=== PATIENT | female | born 1940 | race Asian ===

== ENCOUNTER 2018-01-20 21:34 | Inpatient (IN) | payer MEDICARE, MEDICAID ==
[~2018-01-20] VITALS: Ht 152.4 cm; Wt 64.0 kg
[~2018-01-20 21:34] MED LIST: ASPI81TA31 PO; CALC0.5C11 PO; CLAR500T3 PO; ESOM40CA PO; MAGN250T10 PO; METO-357 PO; TRAM50TA PO
--- NOTE | 2018-01-20 21:54 | NUR ---
PT A/OX4, RESPONSIVE TO VERBAL AND TACTILE STIMULIL. PT C/O SI. PT VERBALIZES PLAN TO HARM SELF USING "SLEEPING PILLS" AND ADMITS TO HAVING ACCESS TO SLEEPING PILLS. PT IS CALM, COOPERATIVE, BUT VERBALIZES EXTREME SADNESS. PT DENIES PAIN, C/P, SOB, N/V/D, DIZZINESS, HEADADCHE. PT SELF-AMBULATED TO BED WITHOUT DIFFICULTY. PT IN BED, BED IN LOW AND LOCKED POSITION WITH BILATERAL SIDERAILS UP.
[2018-01-20] MEDS ORDERED: RISP0.5T20 PO (22:15)
[2018-01-20] MEDS ORDERED: FAMO20TA8 PO (22:15)
[2018-01-20] MEDS ORDERED: ONDANSETRON ODT 4 MG TAB.RAPDIS SL ONE (22:30)
[2018-01-20] MEDS ORDERED: HYDROCODONE/APAP 5-325MG TABLET PO ONE (22:30)
[2018-01-20] MEDS ORDERED: ONDANSETRON ODT 4 MG TAB.RAPDIS ONE (22:35)
[2018-01-20] MEDS ORDERED: HYDROCODONE/APAP 5-325MG TABLET ONE (22:35)
--- NOTE | 2018-01-20 22:43 | NUR ---
XRAY AT BEDSIDE.
--- NOTE | 2018-01-20 22:55 | NUR ---
CALLED MARISA, CRISIS INSURANCE CLERK, FOR PSYCH EVAL. LEFT MESSAGE. ATTEMPT 1.
[2018-01-20 23:09] LABS: BASOPHILS % (AUTO) 0.5 % (0.0-2.0); EOSINOPHILS # (AUTO) 0.1 K/uL (0.0-0.7); EOSINOPHILS % (AUTO) 1.6 % (0.0-7.0); HEMATOCRIT 38.8 % (31.2-41.9); HEMOGLOBIN 13.5 g/dL (10.9-14.3); LYMPHOCYTES # (AUTO) 1.9 K/uL (20.0-40.0); LYMPHOCYTES % (AUTO) 31.2 % (20.5-51.5); MEAN CORPUSCULAR HEMOGLOBIN 33.2 uug (24.7-32.8); MEAN CORPUSCULAR HGB CONC 35 g/dL (32.3-35.6); MEAN CORPUSCULAR VOLUME 95.6 fL (75.5-95.3); MONOCYTES # (AUTO) 0.6 K/uL (2.0-10.0); MONOCYTES % (AUTO) 9.3 % (0.0-11.0); NEUTROPHILS # (AUTO) 3.6 K/uL (1.8-8.9); NEUTROPHILS % (AUTO) 57.4 % (38.5-71.5); PLATELET COUNT (AUTO) 292 K/uL (179-408); RED BLOOD CELL COUNT(AUTO) 4.06 MIL/uL (3.63-4.92); WHITE BLOOD COUNT (AUTO) 6.2 K/uL (3.8-11.8)
[2018-01-20 23:23] LABS: *BILIRUBIN,URIN NEGATIVE (NEGATIVE); *BLOOD, URINE 1+ (NEGATIVE); *CLARITY,URINE CLEAR (CLEAR); *KETONES,URINE NEGATIVE (NEGATIVE); *PROTEIN,URINE NEGATIVE (NEGATIVE); *UROBILINOGEN,URINE 0.2 E.U./dl (NORMAL); LEUKOCYTE ESTERASE ,URINE TRACE (NEGATIVE); NITRITE, URINE NEGATIVE (NEGATIVE); UGLUCOSE NEGATIVE (NEGATIVE)
[2018-01-20 23:27] LABS: ALANINE AMINOTRANSFERASE 23 U/L (14-59); ALKALINE PHOSPHATASE 39 U/L (50-136); ASPARTATE AMINOTRANSFERASE 19 U/L (15-37); BILIRUBIN,DIRECT 0.2 mg/dL (0.0-0.2); BILIRUBIN,TOTAL 0.7 mg/dL (0.2-1.0); CARBON DIOXIDE 28 mmol/L (21-32); CHLORIDE 103 mmol/L (98-107); CREATININE 0.7 mg/dL (0.6-1.3); GLUCOSE 105 mg/dL (74-106); POTASSIUM 3.9 mmol/L (3.5-5.1); TOTAL PROTEIN, SERUM 7.5 g/dL (6.4-8.2); UREA NITROGEN, BLOOD 12 mg/dL (7-18)
--- NOTE | 2018-01-20 23:27 | NUR ---
SPOKE W/ MARISA, CRISIS AIRCRAFT MOTOR MECHANIC. ETA 1 HOUR.
[2018-01-20 23:30] LABS: ACETAMINOPHEN < 2.0 ug/mL (10-30)
[2018-01-20 23:33] LABS: THYROID STIMULATING HORMONE 1.818 mIU/mL (0.358-3.740)
[2018-01-20 23:39] LABS: ETHANOL < 3 MG/DL (0-0)
[2018-01-20 23:40] LABS: *COLOR,URINE STRAW (YELLOW)
[2018-01-20 23:41] LABS: BACTERIA,URINE NONE SEEN /HPF (NONE SEEN); RBC,URINE 0-3 /HPF (0-3); SQUAMOUS EPITHELIAL CELL,UR FEW /HPF (NONE SEEN); WBC,URINE 0-3 /HPF (0-3)
[2018-01-20 23:45] LABS: *AMPHETAMINE, URINE NEGATIVE (NEGATIVE); *BARBITURATE, URINE NEGATIVE (NEGATIVE); *CANNABINOID, URINE NEGATIVE (NEGATIVE); *COCCAINE, URINE NEGATIVE (NEGATIVE); *OPIATE, URINE NEGATIVE (NEGATIVE); *PHENCYCLIDINE SCREEN,URINE NEGATIVE (NEGATIVE)
--- NOTE | 2018-01-21 00:17 | NUR ---
MARISA, CRISIS STEM SHAPER, IN DEPARTMENT.
--- NOTE | 2018-01-21 01:10 | NUR ---
PT PLACED ON 5150 HOLD FOR DTS. PT WILL BE ADMITTED TO [facility].
--- NOTE | 2018-01-21 02:52 | NUR ---
Pt. admitted to [facility], under care of Dr. REIS/PETE. Belongs List completed
[2018-01-21 03:00] VITALS: BP 136/62
[2018-01-21] MEDS ORDERED: LORAZEPAM 1 MG TABLET PO PRN (03:00)
[2018-01-21] MEDS ORDERED: MAG HYDROX/AL HYDROX/SIMETH 30 ML LIQUID UDC PO PRN (03:00)
[2018-01-21] MEDS ORDERED: MAGNESIUM HYDROXIDE 30 ML LIQUID UDC PO PRN (03:00)
[2018-01-21] MEDS ORDERED: ACETAMINOPHEN 325 MG TABLET PO PRN (03:00)
[2018-01-21] MEDS ORDERED: TEMAZEPAM 7.5 MG CAPSULE PO PRN (03:00)
--- NOTE | 2018-01-21 03:20 | NUR ---
77 YEAR OLD FEMALE BROUGHT TO MED SURG FLOOR VIA GURNEY. ACCOMPANIED BY ER STAFF, PT ON 5150 HOLD FOR DTS,ACCORDING TO THE HOLD. PT STATED THAT SHE IS DEPRESSED, SUICIDAL,CRYING A LOT, HAVE THOUGHTS TO OVERDOSE ON MEDICATIONS, SHE HAS NO ENERGY AND APPETITE. SHE STATED WHEN INTERVIEWED FACE TO FACE THAT " SHE WANT TO AND DON'T WANT TO LIVE." RN CONCURS WITH THE HOLD. ADVISEMENT AND PATIENT RIGHTS HANDBOOK GIVEN. UPON FACE TO FACE ASSESSMENT, PT APPEARS TO REFLECT WHAT IS ON HOLD. PT IS ALERTAND ORIENTEDX3 AND COOPERATIVE WITH ASSESSMENT. PT REPORTS 9/10DEPRESSION, NO SI AT THIS TIME. PT AGREED TO CONTRACT FOR SAFETY INSIDE HOSPITAL. PT SKIN INTACT. PT CONTRABAND ITEMS IS ON CONTRABAND LOCKER. DOCTOR HARDY AND DR GERALDO WEST NOTIFIED OF ADMISSION, ORDERS RECEIVED. PT ORIENTED TO UNIT AND EDUCATED ON UNIT RULES.PT VITAL SIGNS WITHIN NORMAL LIMIT. SITTER AT BEDSIDE FOR SAFETY. WILL CONTINUE TO MONITOR.
--- NOTE | 2018-01-21 07:46 | NUR ---
RECEIVED PATIENT AWAKE ALERT/ORIENTED BUT SOMEWHAT FORGETFUL ABLE TO MAKE SIMPLE NEEDS KNOWN ASSISTED AMBULATED TO THE BATHROOM TO VOID DENIES SI AT THIS TIME MADE COMFORTABLE.
[2018-01-21 08:15] VITALS: BP 139/71
--- NOTE | 2018-01-21 12:21 | NUR ---
Firearms Report: Buzzsaw Operator Helper completed and submitted [employer] Firearms Report for DTS certification.
--- NOTE | 2018-01-21 14:54 | NUR ---
PATIENT TRANSFERED TO MENTAL HEALTH FIRST FLOOR BY W/CHAIR REPORT GIVEN TO LENIN IN CHARGE WITH ALL HER PERSONAL BELONGINGS INCLUDING TWO BAGS FROM THE CONTRA BAND LOCKER TRANSFERED IN SATISFACTORY CONDITION.
[2018-01-21 18:02] VITALS: BP 118/66
[2018-01-21 20:00] VITALS: BP 129/66
[2018-01-21] MEDS: MIRTAZAPINE 15 MG TABLET PO SCH (20:30)
[2018-01-21] MEDS: risperiDONE 0.25 MG TABLET PO SCH (20:30)
[2018-01-22 07:30] VITALS: BP 110/60
[2018-01-22] MEDS: METOPROLOL SUCCINATE XL 50 MG TAB.SR.24H PO SCH ×2 (08:40→17:33)
[2018-01-22] MEDS: FAMOTIDINE 20 MG TABLET PO SCH ×2 (08:40→17:33)
[2018-01-22] MEDS: ASPIRIN 81 MG TAB.CHEW PO SCH (08:40)
[2018-01-22 15:34] VITALS: BP 107/61
[2018-01-22 19:30] VITALS: BP 115/75
[2018-01-22] MEDS: MIRTAZAPINE 15 MG TABLET PO SCH (20:32)
[2018-01-22] MEDS: risperiDONE 0.25 MG TABLET PO SCH (20:32)
--- NOTE | 2018-01-23 05:36 | NUR ---
Received pt to care, pt standing in the doorway of her room. Pt pleasant, A&O x 2-3, pt states that she wants to go home. Pt concerned about her roommate behavior, states that she talks to much and she does not want other pt in her room. Pt req "sleeping pill" but was informed she is not receiving a sleeping pill but meds for depression and mood. I figured this out due to pt description of the med, pt states "one is cut in half" Pt receiving risperdal and remeron 7.5 instead of 15mg. Pt complied with taking her scheduled meds. Pt complained to television script writer that since she has been on this unit she has been constipated and has upset stomach. Data Entry Supervisor noticed that PRN were never given. Inquired with pt and she states that she never told anyone. Pt informed that meds can cause constipation and that she needs to notify staff about what is happening with her at all times so we can treat and help her. Dr. Villagomez was on the unit, he is considering discharging pt but let her know that he wants her to have a bowel movement first. Pt agreed to take milk of magnesia. About 1 hour later pt showed television script writer a small, formed, skinny, dark green, med soft piece of BM that was wrapped in a napkin. Pt states that she has flushed the rest. Pt wants doctor to know about BM so that she can go home. Pt later req a sleeping pill because her roommate is bothering her with talking to herself and she cannot get to sleep. Pt given restoril. Pt went to sleep. Woke up 3 hours later complaining of roommate again, pt counseled and was walked back to her room. Pt was noted in the bed resting continuously the rest of the night. Pt is still asleep at 5:45am. Pt seems stable to television script writer.
[2018-01-23 07:30] VITALS: BP 102/66
[2018-01-23 07:33] LABS: BASOPHILS % (AUTO) 0.4 % (0.0-2.0); EOSINOPHILS # (AUTO) 0.1 K/uL (0.0-0.7); EOSINOPHILS % (AUTO) 1.5 % (0.0-7.0); HEMATOCRIT 41.6 % (31.2-41.9); HEMOGLOBIN 14.1 g/dL (10.9-14.3); LYMPHOCYTES # (AUTO) 2.5 K/uL (20.0-40.0); LYMPHOCYTES % (AUTO) 34.1 % (20.5-51.5); MEAN CORPUSCULAR HEMOGLOBIN 33.1 uug (24.7-32.8); MEAN CORPUSCULAR HGB CONC 34 g/dL (32.3-35.6); MEAN CORPUSCULAR VOLUME 97.9 fL (75.5-95.3); MONOCYTES # (AUTO) 0.7 K/uL (2.0-10.0); MONOCYTES % (AUTO) 9.9 % (0.0-11.0); NEUTROPHILS # (AUTO) 3.9 K/uL (1.8-8.9); NEUTROPHILS % (AUTO) 54.1 % (38.5-71.5); PLATELET COUNT (AUTO) 288 K/uL (179-408); RED BLOOD CELL COUNT(AUTO) 4.25 MIL/uL (3.63-4.92); WHITE BLOOD COUNT (AUTO) 7.2 K/uL (3.8-11.8)
[2018-01-23 07:49] LABS: CARBON DIOXIDE 29 mmol/L (21-32); CHLORIDE 107 mmol/L (98-107); CREATININE 0.6 mg/dL (0.6-1.3); GLUCOSE 98 mg/dL (74-106); MAGNESIUM 2.2 mg/dL (1.8-2.4); PHOSPHOROUS 4.1 mg/dL (2.5-4.9); POTASSIUM 3.8 mmol/L (3.5-5.1); UREA NITROGEN, BLOOD 18 mg/dL (7-18)
[2018-01-23] MEDS: ASPIRIN 81 MG TAB.CHEW PO SCH ×2 (08:57→09:00)
[2018-01-23] MEDS: METOPROLOL SUCCINATE XL 50 MG TAB.SR.24H PO SCH ×2 (08:58→17:10)
[2018-01-23] MEDS: FAMOTIDINE 20 MG TABLET PO SCH ×2 (08:59→17:07)
--- NOTE | 2018-01-23 11:48 | NUR ---
Initial Discharge Instructions: Patient currently lives at home with her [[address] [address]; [phone]]. Spoke with patient's daughter, Lucila Ortiz ([phone]) who reports she would like the patient to return home when ready for discharge and will provide the transportation. Daughter also reported that the patient will need Home Health for medication management and drug abuse social worker when discharged. Dtr also requested referrals to a Mandarin-speaking psychiatrist if possible. SW will continue to collaborate with pt, family, and MD regarding most appropriate discharge plans. SW will form a safe and proper discharge.
[2018-01-23 16:09] VITALS: BP 105/50
--- NOTE | 2018-01-23 18:51 | NUR ---
patient visible on unit c/o roommate and requested a room change and it was changed to 145 c , no behavior problems frequent redirection.continue to provide a safe enviornment
[2018-01-23] MEDS: risperiDONE 0.25 MG TABLET PO SCH (20:42)
[2018-01-23] MEDS: MIRTAZAPINE 15 MG TABLET PO SCH (20:43)
[2018-01-23 21:48] VITALS: BP 107/60
[2018-01-23] MEDS ORDERED: MONTELUKAST SODIUM 10 MG TABLET ONE (22:35)
[2018-01-23] MEDS ORDERED: GABAPENTIN 400 MG CAPSULE ONE (22:36)
[2018-01-23] MEDS ORDERED: DIAZEPAM 5 MG TABLET ONE (22:36)
[2018-01-23] MEDS ORDERED: ATORVASTATIN 20 MG TABLET ONE (22:40)
[2018-01-24 07:30] VITALS: BP 111/50
[2018-01-24 09:00] VITALS: BP 108/51
[2018-01-24] MEDS: METOPROLOL SUCCINATE XL 50 MG TAB.SR.24H PO SCH (09:00)
[2018-01-24] MEDS: ASPIRIN 81 MG TAB.CHEW PO SCH (09:18)
[2018-01-24] MEDS: FAMOTIDINE 20 MG TABLET PO SCH (09:18)
--- NOTE | 2018-01-24 09:55 | NUR ---
Discharge Note: Patient will be discharging back to home [[email or web address] [address]; ] and transportation will be provided by daughter, Lucila [[phone]] at 11:30. boning room worker has spoken with patient daughter who is aware and agreeable with discharge plan. boning room worker has informed patient of discharge who is also aware and agreeable with plan. Patient is AxOx3 and denies any SI/HI and is able to provide self-care. Patient will need home health for medication management and social work support. Home health is in the process of being arranged and aids social worker will follow-up. Patient also is being provided with a list of Mandarin speaking psychiatrists. Patient was provided with mental health resources including [facility] Crisis Line [ ], Ciarra Bello [ ], and National Suicide Prevention Lifeline [ ]. Addendum: 01/25/18 at 1522 by LEEANNA SHAH Additional Information: Patient was accepted by [facility] [[phone]] agency and acceptance was confirmed by Josie. Per Josie, they will contact patient and set up time for visit.
--- NOTE | 2018-01-24 12:32 | NUR ---
Gps/Director Of Recruiting Daughter in to knot picker cloth patient, reviewed prescriptions, medications ,diet, safety emphasized , discharged instructions reviewed, both verbalized understanding .Discharged in good spirit, no complaints noted.Discharged via private car, all belongings returned back to patient.
== END 2018-01-24 12:30 | disposition home health service (06) | DRG 885 ==
LOC: ER 21:37 → GPSOV 01-21 01:50 → GPS 01-21 14:52
PROVIDERS: ADMIT Psychiatry & Neurology Psychiatry; ATTEND Nurse Practitioner Acute Care
DX: F33.3 Major depressive disorder, recurrent, severe with psychotic symptoms (principal); M48.56XA Collapsed vertebra, not elsewhere classified, lumbar region, initial encounter for fracture; Z91.5 Personal history of self-harm; K21.9 Gastro-esophageal reflux disease without esophagitis; M81.0 Age-related osteoporosis without current pathological fracture; I10 Essential (primary) hypertension; M19.90 Unspecified osteoarthritis, unspecified site; E78.5 Hyperlipidemia, unspecified; F41.9 Anxiety disorder, unspecified; R00.2 Palpitations
CPT/HCPCS: 36415; 72100; 80307; 83735; 84100; 84443; 85025; 93005; A4663; G0480; G0480-TC; Q0162

== ENCOUNTER 2022-12-21 13:00 | Inpatient (IN) | payer MEDICARE, OTHER ==
[~2022-12-21] VITALS: Ht 152.4 cm; Wt 54.4 kg
[~2022-12-21 13:00] MED LIST changes: -CALC0.5C11 PO; -CLAR500T3 PO; -ESOM40CA PO; +FAMO20TA8 PO; -MAGN250T10 PO; -TRAM50TA PO
[2022-12-21 14:05] LABS: *BILIRUBIN,URIN NEGATIVE (NEGATIVE); *BLOOD, URINE 2+ (NEGATIVE); *CLARITY,URINE CLEAR (CLEAR); *COLOR,URINE YELLOW (YELLOW); *KETONES,URINE NEGATIVE (NEGATIVE); *PROTEIN,URINE NEGATIVE (NEGATIVE); LEUKOCYTE ESTERASE ,URINE NEGATIVE (NEGATIVE); NITRITE, URINE NEGATIVE (NEGATIVE); PH,URINE 6.5 (5.0-8.0); UGLUCOSE NEGATIVE (NEGATIVE)
[2022-12-21 14:18] LABS: BASOPHILS % (AUTO) 0.8 % (0.0-2.0); EOSINOPHILS % (AUTO) 1.1 % (0.0-7.0); HEMATOCRIT 37.8 % (31.2-41.9); HEMOGLOBIN 12.9 g/dL (10.9-14.3); LYMPHOCYTES # (AUTO) 1.3 K/uL (0.8-4.8); LYMPHOCYTES % (AUTO) 29.2 % (20.5-51.5); MEAN CORPUSCULAR HEMOGLOBIN 33.1 uug (24.7-32.8); MEAN CORPUSCULAR HGB CONC 34 g/dL (32.3-35.6); MEAN CORPUSCULAR VOLUME 96.8 fL (75.5-95.3); MONOCYTES # (AUTO) 0.5 K/uL (0.1-1.30); MONOCYTES % (AUTO) 10.3 % (0.0-11.0); NEUTROPHILS # (AUTO) 2.6 K/uL (1.8-8.9); NEUTROPHILS % (AUTO) 58.6 % (38.5-71.5); PLATELET COUNT (AUTO) 290 K/uL (179-408); RED CELL DISTRIBUTION WIDTH 13.7 % (12.3-17.7); WHITE BLOOD COUNT (AUTO) 4.5 K/uL (3.8-11.8)
[2022-12-21 14:26] LABS: DIFFERENTIAL COMMENT 1
[2022-12-21 14:40] LABS: ETHANOL < 3 MG/DL (0-10)
[2022-12-21 14:45] LABS: CALCIUM 8.9 mg/dL (8.5-10.1); CARBON DIOXIDE 28 mmol/L (21-32); CHLORIDE 103 mmol/L (98-107); CREATININE 0.5 mg/dL (0.6-1.3); GLUCOSE 89 mg/dL (74-106); POTASSIUM 3.5 mmol/L (3.5-5.1); SODIUM SERUM 140 mmol/L (136-145); UREA NITROGEN, BLOOD 15 mg/dL (7-18)
[2022-12-21 14:52] LABS: *AMPHETAMINE, URINE NEGATIVE (NEGATIVE); *BARBITURATE, URINE NEGATIVE (NEGATIVE); *BENZODIAZEPINE, URINE NEGATIVE (NEGATIVE); *CANNABINOID, URINE NEGATIVE (NEGATIVE); *COCCAINE, URINE NEGATIVE (NEGATIVE); *OPIATE, URINE NEGATIVE (NEGATIVE); *PHENCYCLIDINE SCREEN,URINE NEGATIVE (NEGATIVE); FENTANYL, URINE NEGATIVE (NEGATIVE)
[2022-12-21 15:01] LABS: BACTERIA,URINE FEW /HPF (NONE SEEN); SQUAMOUS EPITHELIAL CELL,UR MODERATE /HPF (NONE SEEN); WBC,URINE 0-3 /HPF (0-3)
[2022-12-21 15:02] LABS: MUCUS,URINE MODERATE /LPF (0-FEW)
[2022-12-21 15:06] LABS: ACETAMINOPHEN < 10.0 ug/mL (10-30); ALANINE AMINOTRANSFERASE 21 U/L (14-59); ALBUMIN 3.2 g/dL (3.4-5.0); ALKALINE PHOSPHATASE 45 U/L (50-136); ASPARTATE AMINOTRANSFERASE 17 U/L (15-37); BILIRUBIN,DIRECT 0.2 mg/dL (0.0-0.2); BILIRUBIN,TOTAL 0.9 mg/dL (0.2-1.0); TOTAL PROTEIN, SERUM 7.3 g/dL (6.4-8.2)
[2022-12-21] MEDS ORDERED: MAG HYDROX/AL HYDROX/SIMETH 30 ML LIQUID UDC PO PRN (18:30)
[2022-12-21] MEDS ORDERED: BLOOD SUGAR DIAGNOSTIC 1 EACH STRIP VI ONE (18:30)
[2022-12-21] MEDS ORDERED: ACETAMINOPHEN 325 MG TABLET PO PRN (18:30)
[2022-12-21] MEDS ORDERED: MAGNESIUM HYDROXIDE 30 ML LIQUID UDC PO PRN (18:30)
[2022-12-21] MEDS ORDERED: METO-356 PO (18:33)
[2022-12-21] MEDS ORDERED: OMEP20CA15 PO (18:33)
[2022-12-21 18:44] VITALS: BP 151/81; TEMP 97.6; O2SAT 99
[2022-12-21 20:00] VITALS: BP 125/64; TEMP 98.1; O2SAT 98
[2022-12-22] MEDS: PANTOPRAZOLE SODIUM 40 MG TABLET.DR PO SCH (06:10)
[2022-12-22 07:30] VITALS: BP 133/57; TEMP 97.6; O2SAT 97
[2022-12-22 08:06] LABS: ALANINE AMINOTRANSFERASE 14 U/L (14-59); ALBUMIN 3.1 g/dL (3.4-5.0); ALKALINE PHOSPHATASE 45 U/L (50-136); ASPARTATE AMINOTRANSFERASE 13 U/L (15-37); BILIRUBIN,TOTAL 1.3 mg/dL (0.2-1.0); CALCIUM 8.8 mg/dL (8.5-10.1); CARBON DIOXIDE 29 mmol/L (21-32); CHLORIDE 105 mmol/L (98-107); CREATININE 0.5 mg/dL (0.6-1.3); GLUCOSE 89 mg/dL (74-106); POTASSIUM 3.4 mmol/L (3.5-5.1); SODIUM SERUM 140 mmol/L (136-145); UREA NITROGEN, BLOOD 13 mg/dL (7-18)
[2022-12-22 08:10] LABS: BASOPHILS % (AUTO) 0.8 % (0.0-2.0); EOSINOPHILS # (AUTO) 0.1 K/uL (0.0-0.7); HEMATOCRIT 36.3 % (31.2-41.9); HEMOGLOBIN 12.2 g/dL (10.9-14.3); LYMPHOCYTES # (AUTO) 1.2 K/uL (0.8-4.8); LYMPHOCYTES % (AUTO) 35.2 % (20.5-51.5); MEAN CORPUSCULAR HEMOGLOBIN 32.9 uug (24.7-32.8); MEAN CORPUSCULAR HGB CONC 34 g/dL (32.3-35.6); MEAN CORPUSCULAR VOLUME 97.4 fL (75.5-95.3); MONOCYTES # (AUTO) 0.3 K/uL (0.1-1.30); MONOCYTES % (AUTO) 9.8 % (0.0-11.0); NEUTROPHILS # (AUTO) 1.8 K/uL (1.8-8.9); NEUTROPHILS % (AUTO) 52.2 % (38.5-71.5); PLATELET COUNT (AUTO) 291 K/uL (179-408); RED BLOOD CELL COUNT(AUTO) 3.73 MIL/uL (3.63-4.92); RED CELL DISTRIBUTION WIDTH 13.7 % (12.3-17.7); WHITE BLOOD COUNT (AUTO) 3.4 K/uL (3.8-11.8)
[2022-12-22 08:16] LABS: DIFFERENTIAL COMMENT 1
[2022-12-22] MEDS ORDERED: POTASSIUM CHLORIDE 20 MEQ TAB.PRT.SR PO ONE (08:30)
[2022-12-22] MEDS: ASPIRIN 81 MG TAB.CHEW PO SCH (08:44)
[2022-12-22] MEDS: METOPROLOL SUCCINATE XL 25 MG TAB.SR.24H PO SCH (08:44)
[2022-12-22] MEDS ORDERED: FAMOTIDINE 20 MG TABLET PO SCH (09:00)
[2022-12-22] MEDS ORDERED: METOPROLOL SUCCINATE XL 50 MG TAB.SR.24H PO SCH (09:00)
[2022-12-22 16:31] VITALS: BP 121/54; TEMP 98; O2SAT 98
[2022-12-22 20:00] VITALS: BP 119/69; TEMP 98.2; O2SAT 99
[2022-12-22] MEDS: MIRTAZAPINE 15 MG TABLET PO SCH (20:17)
[2022-12-22] MEDS: ATORVASTATIN 10 MG TABLET PO SCH (20:17)
[2022-12-22] MEDS: risperiDONE 0.25 MG TABLET PO SCH (20:17)
[2022-12-22] MEDS: CLONAZEPAM 0.5 MG TABLET PO PRN (22:06)
[2022-12-23] MEDS: PANTOPRAZOLE SODIUM 40 MG TABLET.DR PO SCH (06:03)
[2022-12-23 07:53] VITALS: BP 128/54; TEMP 98; O2SAT 98
[2022-12-23] MEDS: METOPROLOL SUCCINATE XL 25 MG TAB.SR.24H PO SCH (08:30)
[2022-12-23] MEDS: ASPIRIN 81 MG TAB.CHEW PO SCH ×2 (08:30→09:00)
[2022-12-23 16:33] VITALS: BP 123/61; TEMP 98; O2SAT 99
[2022-12-23] MEDS: CLONAZEPAM 0.5 MG TABLET PO PRN (19:50)
[2022-12-23 20:00] VITALS: BP 136/76; TEMP 98; O2SAT 97
[2022-12-23] MEDS: MIRTAZAPINE 15 MG TABLET PO SCH (20:28)
[2022-12-23] MEDS: risperiDONE 0.25 MG TABLET PO SCH (20:28)
[2022-12-23] MEDS: ATORVASTATIN 10 MG TABLET PO SCH (20:28)
[2022-12-24] MEDS: PANTOPRAZOLE SODIUM 40 MG TABLET.DR PO SCH (06:18)
[2022-12-24 08:13] VITALS: BP 128/56; TEMP 98.1; O2SAT 98
[2022-12-24] MEDS: METOPROLOL SUCCINATE XL 25 MG TAB.SR.24H PO SCH (08:34)
[2022-12-24] MEDS: ASPIRIN 81 MG TAB.CHEW PO SCH (08:34)
[2022-12-24 16:06] VITALS: BP 113/51; TEMP 98.2; O2SAT 98
[2022-12-24] MEDS: risperiDONE 0.25 MG TABLET PO SCH (20:43)
[2022-12-24] MEDS: ATORVASTATIN 10 MG TABLET PO SCH (20:43)
[2022-12-24] MEDS: MIRTAZAPINE 15 MG TABLET PO SCH (20:43)
[2022-12-24] MEDS: CLONAZEPAM 0.5 MG TABLET PO PRN (21:56)
[2022-12-25] MEDS: PANTOPRAZOLE SODIUM 40 MG TABLET.DR PO SCH (07:00)
[2022-12-25 07:55] VITALS: BP 129/66; TEMP 98; O2SAT 97
[2022-12-25] MEDS: METOPROLOL SUCCINATE XL 25 MG TAB.SR.24H PO SCH (08:32)
[2022-12-25] MEDS: ASPIRIN 81 MG TAB.CHEW PO SCH (08:32)
[2022-12-25 16:10] VITALS: BP 119/70; TEMP 98; O2SAT 97
[2022-12-25 20:00] VITALS: BP 123/65; O2SAT 98
[2022-12-25] MEDS: risperiDONE 0.25 MG TABLET PO SCH (20:26)
[2022-12-25] MEDS: ATORVASTATIN 10 MG TABLET PO SCH (20:26)
[2022-12-25] MEDS: MIRTAZAPINE 15 MG TABLET PO SCH (20:27)
[2022-12-26] MEDS: CLONAZEPAM 0.5 MG TABLET PO PRN (06:53)
[2022-12-26] MEDS: PANTOPRAZOLE SODIUM 40 MG TABLET.DR PO SCH (06:53)
[2022-12-26 07:49] VITALS: BP 131/65; TEMP 97.8; O2SAT 98
[2022-12-26] MEDS: ASPIRIN 81 MG TAB.CHEW PO SCH (08:41)
[2022-12-26] MEDS: METOPROLOL SUCCINATE XL 25 MG TAB.SR.24H PO SCH (08:41)
[2022-12-26 15:28] VITALS: BP 100/50; TEMP 98.2; O2SAT 98
[2022-12-26] MEDS: PROTEIN SUPPLEMENT (PROSTAT) 30 ML LIQUID PO SCH (17:00)
[2022-12-26 19:57] VITALS: BP 111/60; TEMP 98.1; O2SAT 96
[2022-12-26] MEDS: ATORVASTATIN 10 MG TABLET PO SCH (21:12)
[2022-12-26] MEDS: MIRTAZAPINE 15 MG TABLET PO SCH (21:14)
[2022-12-26] MEDS: risperiDONE 0.25 MG TABLET PO SCH (21:14)
[2022-12-27] MEDS: PANTOPRAZOLE SODIUM 40 MG TABLET.DR PO SCH (07:00)
[2022-12-27 07:50] VITALS: BP 126/63; TEMP 98.2; O2SAT 99
[2022-12-27] MEDS: PROTEIN SUPPLEMENT (PROSTAT) 30 ML LIQUID PO SCH ×2 (09:00→17:00)
[2022-12-27] MEDS: ASPIRIN 81 MG TAB.CHEW PO SCH ×2 (09:00→09:08)
[2022-12-27] MEDS: METOPROLOL SUCCINATE XL 25 MG TAB.SR.24H PO SCH ×2 (09:00→09:08)
[2022-12-27 19:50] VITALS: BP 130/64; TEMP 98.1; O2SAT 98
[2022-12-27] MEDS: risperiDONE 0.25 MG TABLET PO SCH (20:20)
[2022-12-27] MEDS: ATORVASTATIN 10 MG TABLET PO SCH (20:20)
[2022-12-27] MEDS: MIRTAZAPINE 15 MG TABLET PO SCH (20:20)
[2022-12-28] MEDS: PANTOPRAZOLE SODIUM 40 MG TABLET.DR PO SCH (06:29)
[2022-12-28 08:07] VITALS: BP 121/61; TEMP 98.4; O2SAT 96
[2022-12-28] MEDS: ASPIRIN 81 MG TAB.CHEW PO SCH (08:57)
[2022-12-28] MEDS: METOPROLOL SUCCINATE XL 25 MG TAB.SR.24H PO SCH (08:58)
[2022-12-28] MEDS: PROTEIN SUPPLEMENT (PROSTAT) 30 ML LIQUID PO SCH ×2 (08:59→16:54)
[2022-12-28 16:00] VITALS: BP 118/66; TEMP 98; O2SAT 100
[2022-12-28 19:49] VITALS: BP 120/64; TEMP 98.1; O2SAT 96
[2022-12-28] MEDS: ATORVASTATIN 10 MG TABLET PO SCH (20:28)
[2022-12-28] MEDS: risperiDONE 0.5 MG TABLET PO SCH (20:28)
[2022-12-28] MEDS: MIRTAZAPINE 15 MG TABLET PO SCH (20:28)
[2022-12-28] MEDS ORDERED: risperiDONE 0.25 MG TABLET PO SCH (21:00)
[2022-12-29] MEDS: PANTOPRAZOLE SODIUM 40 MG TABLET.DR PO SCH (06:09)
[2022-12-29 08:22] VITALS: BP 128/63; TEMP 97.8; O2SAT 98
[2022-12-29] MEDS: METOPROLOL SUCCINATE XL 25 MG TAB.SR.24H PO SCH (08:52)
[2022-12-29] MEDS: ASPIRIN 81 MG TAB.CHEW PO SCH (08:52)
[2022-12-29] MEDS: PROTEIN SUPPLEMENT (PROSTAT) 30 ML LIQUID PO SCH ×2 (08:53→17:26)
[2022-12-29 16:03] VITALS: BP 123/60; TEMP 98; O2SAT 99
[2022-12-29 20:04] VITALS: BP 109/53; TEMP 97.9; O2SAT 98
[2022-12-29] MEDS: risperiDONE 0.5 MG TABLET PO SCH (20:57)
[2022-12-29] MEDS: MIRTAZAPINE 15 MG TABLET PO SCH (20:57)
[2022-12-29] MEDS: ATORVASTATIN 10 MG TABLET PO SCH (20:57)
[2022-12-30] MEDS: PANTOPRAZOLE SODIUM 40 MG TABLET.DR PO SCH (06:14)
[2022-12-30 07:37] VITALS: BP 139/64; TEMP 97.7; O2SAT 98
[2022-12-30] MEDS: ASPIRIN 81 MG TAB.CHEW PO SCH (09:00)
[2022-12-30] MEDS: METOPROLOL SUCCINATE XL 25 MG TAB.SR.24H PO SCH (09:23)
[2022-12-30] MEDS: PROTEIN SUPPLEMENT (PROSTAT) 30 ML LIQUID PO SCH ×2 (09:24→17:00)
[2022-12-30 16:22] VITALS: BP 112/61; TEMP 98; O2SAT 98
[2022-12-30 20:00] VITALS: BP 133/67; O2SAT 97
[2022-12-30] MEDS: risperiDONE 0.5 MG TABLET PO SCH (20:34)
[2022-12-30] MEDS: ATORVASTATIN 10 MG TABLET PO SCH (20:34)
[2022-12-30] MEDS: MIRTAZAPINE 15 MG TABLET PO SCH (20:34)
[2022-12-31] MEDS: PANTOPRAZOLE SODIUM 40 MG TABLET.DR PO SCH (06:44)
[2022-12-31 08:10] VITALS: BP 136/74; TEMP 98; O2SAT 99
[2022-12-31] MEDS: ASPIRIN 81 MG TAB.CHEW PO SCH (08:23)
[2022-12-31] MEDS: METOPROLOL SUCCINATE XL 25 MG TAB.SR.24H PO SCH (08:24)
[2022-12-31] MEDS: PROTEIN SUPPLEMENT (PROSTAT) 30 ML LIQUID PO SCH ×2 (08:25→16:17)
[2022-12-31 16:15] VITALS: BP 139/61; TEMP 98; O2SAT 98
[2022-12-31 20:01] VITALS: BP 130/70; TEMP 97.9; O2SAT 99
[2022-12-31] MEDS: risperiDONE 0.5 MG TABLET PO SCH (20:05)
[2022-12-31] MEDS: MIRTAZAPINE 15 MG TABLET PO SCH (20:06)
[2022-12-31] MEDS: ATORVASTATIN 10 MG TABLET PO SCH (20:06)
[2023-01-01] MEDS: PANTOPRAZOLE SODIUM 40 MG TABLET.DR PO SCH (07:21)
[2023-01-01 07:58] VITALS: BP 122/65; TEMP 98; O2SAT 98
[2023-01-01] MEDS: METOPROLOL SUCCINATE XL 25 MG TAB.SR.24H PO SCH (08:33)
[2023-01-01] MEDS: ASPIRIN 81 MG TAB.CHEW PO SCH (08:33)
[2023-01-01] MEDS: PROTEIN SUPPLEMENT (PROSTAT) 30 ML LIQUID PO SCH ×2 (08:34→16:49)
[2023-01-01 16:18] VITALS: BP 102/52; TEMP 98; O2SAT 98
[2023-01-01 20:00] VITALS: BP 134/79; O2SAT 98
[2023-01-01] MEDS: ATORVASTATIN 10 MG TABLET PO SCH (20:44)
[2023-01-01] MEDS: risperiDONE 0.5 MG TABLET PO SCH (20:45)
[2023-01-01] MEDS: MIRTAZAPINE 15 MG TABLET PO SCH (20:45)
[2023-01-02] MEDS: PANTOPRAZOLE SODIUM 40 MG TABLET.DR PO SCH (06:31)
[2023-01-02 08:27] VITALS: BP 113/56; TEMP 98.2; O2SAT 98
[2023-01-02] MEDS: PROTEIN SUPPLEMENT (PROSTAT) 30 ML LIQUID PO SCH (09:00)
[2023-01-02 09:11] VITALS: BP 113/56
[2023-01-02] MEDS: METOPROLOL SUCCINATE XL 25 MG TAB.SR.24H PO SCH (09:11)
[2023-01-02] MEDS: ASPIRIN 81 MG TAB.CHEW PO SCH (09:11)
== END 2023-01-02 11:15 | DRG 885 ==
LOC: ER 13:00 → GPS 17:53
PROVIDERS: ADMIT Psychiatry & Neurology Psychiatry; ATTEND Internal Medicine
DX: F33.3 Major depressive disorder, recurrent, severe with psychotic symptoms (principal); G93.41 Metabolic encephalopathy; R45.851 Suicidal ideations; F03.93 Unspecified dementia, unspecified severity, with mood disturbance; E78.5 Hyperlipidemia, unspecified; K21.9 Gastro-esophageal reflux disease without esophagitis; Z79.82 Long term (current) use of aspirin; Z73.6 Limitation of activities due to disability; I10 Essential (primary) hypertension; F39 Unspecified mood [affective] disorder; Z20.822 Contact with and (suspected) exposure to COVID-19; Z91.199 Patient's noncompliance with other medical treatment and regimen due to unspecified reason; Z91.51 Personal history of suicidal behavior; F29 Unspecified psychosis not due to a substance or known physiological condition
CPT/HCPCS: 36415; 85025; 93005; G0480